=== PATIENT | female | born 1950 ===

== ENCOUNTER 2016-10-16 01:54 | Inpatient (IN) ==
--- NOTE | 2016-10-16 02:03 | Emergency Department Note ---
Arrival - Arrival Mode of Arrival: Ambulatory Limitations: Altered Mental Status Source: Old Records Reviewed Time Seen by Provider: 10/16/16 02:00 - History of Present Illness HPI Narrative: This 66-year-old female presents on transfer from [facility] for hypothermia. The patient originally presented to [place] because of increasing dyspnea at rest and urinary tract infection. She subsequently was found to have a temperature of 90.8 with a white blood count of 15,000 and urine on visual resembling a greenish yellow discharge. Patient was given 2 g of Rocephin IV and 500 cc of warm normal saline and referred to our institution for further evaluation and treatment. The patient is in hospice and is a DNR not wishing anything extraordinary to be undertaken. She is status post failed renal transplant and chose not to proceed with dialysis. Currently she is alert and responsive with a temperature of 91 and a blood pressure systolic of 100 on arrival to our unit Onset (ago): unknown Allergies/Adverse Reactions: Allergies Allergy/AdvReac Type Severity Reaction Status Date / Time ciprofloxacin [From Cipro] AdvReac Swelling Verified 06/15/15 15:44 of Lip/Tongue/Throat Home Medications: Home Medications Medication Instructions Recorded Confirmed Type Calcitriol [Rocaltrol] 0.25 mcg PO DAILY capsule 09/13/15 04/01/16 Rx Cyanocobalamin Tab [Vitamin B12 1,000 mcg PO DAILY tablet 09/13/15 04/01/16 Rx Tab] Folic Acid Tab 1 mg PO DAILY tablet 09/13/15 04/01/16 Rx predniSONE TAB [PredniSONE] 10 mg PO DAILY tablet 09/13/15 04/01/16 Rx Acetamin/Codeine 300-30 Tab 1 tablet PO Q6H PRN 04/01/16 04/01/16 History [Tylenol/Codeine #3] Carvedilol [Coreg] 25 mg PO BID 04/01/16 04/01/16 History Ferrous Sulfate 648 mg PO BEDTIME 04/01/16 04/01/16 History Fluconazole Tab [Diflucan Tab] 400 mg PO DAILY 04/01/16 04/01/16 History Furosemide Tab [Lasix Tab] 40 mg PO DAILY 04/01/16 04/01/16 History Multivitamin [Multivitamins] 1 each PO DAILY 04/01/16 04/01/16 History Tacrolimus Cap [Prograf Cap] 0.5 mg PO Q12HR 04/01/16 04/01/16 History Tamsulosin [Flomax] 0.4 mg PO BEDTIME 04/01/16 04/01/16 History Thiamine Tab [Vitamin B1 Tab] 100 mg PO DAILY 04/01/16 04/01/16 History Aspirin EC Tab 81 mg PO DAILY tablet 04/05/16 Rx Imipenem/Cilastatin Sodium 500 mg IV DAILY 5 Days 04/05/16 Rx [Imipenem-Cilastatin 500 mg Vl] Insulin Aspart Prot/Asp 70/30 12 unit SUBCUT BIDAC #1 injection 04/05/16 Rx [NovoLOG Mix 70/30] Levofloxacin Tab [Levaquin Tab] 250 mg PO DAILY #6 tablet 04/05/16 Rx Skin Healing Oint (Aquaphor) 1 applic TOP PRN PRN #0 ointment 04/05/16 Rx [Aquaphor] Sodium Bicarb Tab 1,300 mg PO BID tablet 04/05/16 Rx Vancomycin Liquid 125 mg PO BID #20 bottle 04/05/16 Rx Review of System - Review of System ROS unobtainable: due to mental status Medical,Surgical,& Family Hx - Medical History Cardio: History of: Hypertension HEENT: History of: Ear Problem (SUPPOSE TO HAVE Hearing aides BUT NOT AT THIS TIME), Eye Problem (cataract), Glaucoma, HEENT Problems (CATARACTS, WEARS GLASSES) Endocrine: History of: Diabetes Mellitus (IDDM), Diabetes Mellitus (NIDDM), Dyslipidemia Rheumatology: History of;: Rheumatoid Arthritis Respiratory: History of: Pneumonia Renal: History of: Renal Failure, Renal Problems (kidney transplant) Genitourinary: History of: Recurring Urinary Tract Infections Gastrointestinal: History of: Clostridium Difficile, GERD Musculoskeletal: History of: Back/Neck Problems (herniated disk), Musculoskeletal Problems (Hardware insertion BLE (ankle)) Hematology: History of: Anemia, Blood Transfusion Reaction Other: History of: Miscellaneous Medical Problems (C Diff) - Surgical History Thoracic Surgeries: Surgical HX of;: Kidney (Renal Surgery) (Right transplant [facility] 6 years ago), Organ Transplant (Kidney 2009) Neurologic Surgeries: Patient denies: Neurologic Surgery Abdominal Surgeries: Surgical HX of: Appendectomy, Cholecystectomy, Colonoscopy (Dr. Fish Sr.), EGD (Dr. Abe Cheatham.) Reproductive Surgeries: Surgical HX of;: Genitourinary Surgery, Gynecologic Surgery, Hysterectomy Orthopedic Surgeries: Surgical HX of;: Total Hip Replacement (right hip September) - Family History Family History: Reports;: Family Diabetes, Family Heart Disease (mom and dad), Family Hypertension, Family Stroke (dad) - Social History Smoking Status: Never smoker Exam Physical Examination: GENERAL: Chronically ill-appearing elderly female in no acute distress. HEENT: Normocephalic. No trauma. Dry mucous membranes. EOMI. PERRLA. ENT NML NECK: Supple. No adenopathy. CARDIAC: Regular. No murmurs. Heart rate 70 CHEST: Scattered expiratory rhonchi. No respiratory distress. O2 sat 100% ABDOMEN: Soft. Nontender. Active bowel sounds. EXTREMITIES: No trauma. Normal ROM. No pedal edema. Left femoral central line noted SKIN: No diaphoresis. Cool and clammy skin. 3 x 3 cm left heel ulcer without purulent drainage or erythema NEURO: Alert. Oriented to person place, less so time. Motor, sensory, vibratory intact. No focal deficits. Course - Reevaluation(s) Reevaluation #1: Patient expectant of admission for terminal care - Consultations Consultation #1: Discussed with hospitalist service who will admit for further evaluation treatment. Results - Labs Labs: Lab per Bruno: White blood cell count 15,000, hematocrit 27, lactic acid 1.8, creatinine 10.5, BUN 156, sodium 126, potassium 7.3, glucose 339 - Impressions EKG: Sinus rhythm at 68 with normal FL interval and QRS duration. Poor R-wave progression anteriorly with evidence of old inferior [place]. Diffuse ST changes without significant peak T's. Disposition Clinical Impression: Hypothermia, Urosepsis, Chronic renal failure Case discussed with: patient Disposition: Still a Patient Condition: Critical Time of Disposition: 02:11
[2016-10-16] MEDS ORDERED: CALCIUM CHLORIDE 1,000 MG/10 ML SYRINGE IV STA (02:12)
[2016-10-16] MEDS ORDERED: ALBUTEROL NEB SOLN 5 MG/ML 20 ML/BOTTLE CONT NEB STA (02:12)
[2016-10-16] MEDS ORDERED: CALCIUM CHLORIDE 1,000 MG/10 ML SYRINGE IV ONE (02:24)
[2016-10-16 03:19] LABS: Calcium 6.9 MG/DL (8.5-10.1); Osmolality,Calculated 319.8 MOS/KG (273-304)
[2016-10-16 03:21] LABS: Potassium 6.3 MMOL/L (3.5-5.1)
[2016-10-16] MEDS ORDERED: ONDANSETRON 4 MG/2 ML VIAL IV PRN (03:29)
[2016-10-16] MEDS ORDERED: GLUCAGON 1 MG VIAL IM PRN ×2 (03:29→09:19)
[2016-10-16] MEDS ORDERED: ALBUTEROL 2.5 MG/3 ML NEB RESP TX PRN (03:29)
[2016-10-16] MEDS ORDERED: ALBUTEROL/IPRATROPIUM 3 ML NEB RESP TX PRN (03:29)
[2016-10-16] MEDS ORDERED: SODIUM BICARBONATE 50 MEQ/50 ML VIAL IV ONE (03:40)
--- NOTE | 2016-10-16 03:49 | Hospitalist History & Physical ---
Assessment and Plan (1) Failed kidney transplant Status: Acute Current Visit: Yes (2) Metabolic acidosis Status: Acute Current Visit: Yes (3) Sepsis Status: Acute Current Visit: Yes (4) Hypothermia Status: Acute Current Visit: No (5) ESRD (end stage renal disease) Status: Acute Current Visit: No (6) Hyperkalemia Status: Resolved Assessment and plan: Our plan for this patient will be admission to the ICU. We will give her 2 A of sodium bicarb and put her on sodium bicarb drip. Patient did have elevated BNP at the other facility. We will give her Lasix in addition to the sodium bicarb drip. This action should help reduce her potassium. I am going to repeat her labs at 7 AM to see the effects of these medications. Most likely patient will not survive this hospitalization. She is a DNR and. I am going to expand her antibiotic coverage to Zosyn. Family should be bringing her home meds which are only 3 medications. Family is unsure if she still takes her antirejection drugs. Will not consult renal at this time yet. Patient has declined dialysis. Repeat chest x-ray. Current Visit: No History of Present Illness Chief complaint: Shortness of breath History of present illness: Ms. Chavez is a 66 year old female with past medical history of a failed kidney transplant and on hospice who is not a dialysis candidate by her own choice in a DNR presents as a transfer to our hospital from [facility]. The family reports that the patient's breathing is steadily become more uncomfortable. Patient seems to be weaker day by day. She has been able to transfer herself from the wheelchair to the bed but could not. Hospice checked on her in the cap inspector. They put her on 4 L of O2. Urine was a green color. Yesterday her temperature was 99. Patient's family took her to see her's grandsons graduation and from that graduation service they went to the [facility]. Patient's temperature at the [facility] was 93. Was felt that patient was septic from a urinary source. Patient is a hospice patient but family insisted on admission. She was transferred to our hospital for further evaluation. Patient has multiple electrolyte abnormalities. I was consulted to admit the patient Home Medications Medication Instructions Recorded Confirmed Type Calcitriol [Rocaltrol] 0.25 mcg PO DAILY capsule 09/13/15 04/01/16 Rx Cyanocobalamin Tab [Vitamin B12 1,000 mcg PO DAILY tablet 09/13/15 04/01/16 Rx Tab] Folic Acid Tab 1 mg PO DAILY tablet 09/13/15 04/01/16 Rx predniSONE TAB [PredniSONE] 10 mg PO DAILY tablet 09/13/15 04/01/16 Rx Acetamin/Codeine 300-30 Tab 1 tablet PO Q6H PRN 04/01/16 04/01/16 History [Tylenol/Codeine #3] Carvedilol [Coreg] 25 mg PO BID 04/01/16 04/01/16 History Ferrous Sulfate 648 mg PO BEDTIME 04/01/16 04/01/16 History Fluconazole Tab [Diflucan Tab] 400 mg PO DAILY 04/01/16 04/01/16 History Furosemide Tab [Lasix Tab] 40 mg PO DAILY 04/01/16 04/01/16 History Multivitamin [Multivitamins] 1 each PO DAILY 04/01/16 04/01/16 History Tacrolimus Cap [Prograf Cap] 0.5 mg PO Q12HR 04/01/16 04/01/16 History Tamsulosin [Flomax] 0.4 mg PO BEDTIME 04/01/16 04/01/16 History Thiamine Tab [Vitamin B1 Tab] 100 mg PO DAILY 04/01/16 04/01/16 History Aspirin EC Tab 81 mg PO DAILY tablet 04/05/16 Rx Imipenem/Cilastatin Sodium 500 mg IV DAILY 5 Days 04/05/16 Rx [Imipenem-Cilastatin 500 mg Vl] Insulin Aspart Prot/Asp 70/30 12 unit SUBCUT BIDAC #1 injection 04/05/16 Rx [NovoLOG Mix 70/30] Levofloxacin Tab [Levaquin Tab] 250 mg PO DAILY #6 tablet 04/05/16 Rx Skin Healing Oint (Aquaphor) 1 applic TOP PRN PRN #0 ointment 04/05/16 Rx [Aquaphor] Sodium Bicarb Tab 1,300 mg PO BID tablet 04/05/16 Rx Vancomycin Liquid 125 mg PO BID #20 bottle 04/05/16 Rx Allergies Allergy/AdvReac Type Severity Reaction Status Date / Time ciprofloxacin [From Cipro] AdvReac Swelling Verified 06/15/15 15:44 of Lip/Tongue/Throat Medical,Surgical,& Family Hx - Medical History Cardio: History of: Hypertension HEENT: History of: Ear Problem (SUPPOSE TO HAVE Hearing aides BUT NOT AT THIS TIME), Eye Problem (cataract), Glaucoma, HEENT Problems (CATARACTS, WEARS GLASSES) Endocrine: History of: Diabetes Mellitus (IDDM), Diabetes Mellitus (NIDDM), Dyslipidemia Rheumatology: History of;: Rheumatoid Arthritis Respiratory: History of: Pneumonia Renal: History of: Renal Failure, Renal Problems (kidney transplant) Genitourinary: History of: Recurring Urinary Tract Infections Gastrointestinal: History of: Clostridium Difficile, GERD Musculoskeletal: History of: Back/Neck Problems (herniated disk), Musculoskeletal Problems (Hardware insertion BLE (ankle)) Hematology: History of: Anemia, Blood Transfusion Reaction Other: History of: Miscellaneous Medical Problems (C Diff) - Surgical History Thoracic Surgeries: Surgical HX of;: Kidney (Renal Surgery) (Right transplant [facility] 6 years ago), Organ Transplant (Kidney 2009) Neurologic Surgeries: Patient denies: Neurologic Surgery Abdominal Surgeries: Surgical HX of: Appendectomy, Cholecystectomy, Colonoscopy (Dr. Fish SrJesusita), EGD (Dr. Fish SrJesusita) Reproductive Surgeries: Surgical HX of;: Genitourinary Surgery, Gynecologic Surgery, Hysterectomy Orthopedic Surgeries: Surgical HX of;: Total Hip Replacement (right hip September) - Family History Family History: Reports;: Family Diabetes, Family Heart Disease (mom and dad), Family Hypertension, Family Stroke (dad) - Social History Smoking Status: Never smoker Frequency of Alcohol Use: None Type of Drug Use: None 12 point system: reviewed and no additional remarkable complaints except as stated Exam - Constitutional Vitals: Period Temp Pulse Resp BP Sys/Rios Pulse Ox Last 24 Hr 91.1 F-91.1 F 66-71 24-26 100-100/49-49 99-100 General appearance: under weight - Head Head exam: Present: normal inspection - Eye Eye exam: Present: EOMI Pupils: Present: DARREL - ENT ENT exam: Present: normal exam - Respiratory Respiratory exam: Present: rhonchi - Cardiovascular Cardiovascular exam: Present: regular rate and rhythm - GI/Abdominal GI/Abdominal exam: Present: normal bowel sounds - Extremities Exam Extremities exam: Present: normal inspection - Neurological Exam Neurological exam: Present: alert - Psychiatric Psychiatric exam: Present: flat affect - Skin Skin exam: Present: other (Skin is cool) Results - Labs CBC & BMP: 10/16/16 02:38
[2016-10-16] MEDS ORDERED: FAMOTIDINE 20 MG/2 ML VIAL IV SCH (05:00)
[2016-10-16] MEDS: SODIUM ACETATE 150 MEQ in STERILE WATER INJ 1,000 ML IV SCH ×2 (05:15→19:36)
[2016-10-16 05:59] LABS: Calcium 7.6 MG/DL (8.5-10.1); Osmolality,Calculated 320.7 MOS/KG (273-304); Potassium 5.9 MMOL/L (3.5-5.1)
[2016-10-16 06:30] LABS: Basophils % 0.1 % (0.0-0.8); Hematocrit 24.9 VOL% (35.7-47.0); Hemoglobin 7.9 GM/DL (12.0-16.0); Immature Granulocytes Absolute 0.15 #; Lymphocytes # 0.7 10*3/uL (1.4-4.0); Lymphocytes % 4.7 % (21.3-54.2); Mean Corpuscular HGB Conc 31.7 GM/DL (32-36); Mean Corpuscular Hemoglobin 33 PG (27-34); Mean Corpuscular Volume 104.2 FL (87-102); Mean Platelet Volume 9.5 FL (9.6-12.0); Monocytes # 0.9 10*3/uL (0.11-0.8); Monocytes % 5.9 % (1.7-12.7); NRBC # 0.03 10*3/uL; Neutrophils # 13.3 10*3/uL (1.4-7.4); Neutrophils % 88.3 % (38.7-73.9); Platelet Count 164 T/CUMM (130-400); Red Blood Count 2.39 MC/CUMM (3.8-5.5); Red Cell Distribution Width 14.5 % (9.3-17.3); White Blood Count 15.1 T/CUMM (4-12)
[2016-10-16] MEDS: PIPERACILLIN/TAZOBACTAM 3,375 MG in SODIUM CHLORIDE 0.9% 100 ML IV SCH ×2 (06:46→16:55)
[2016-10-16 07:08] LABS: Hypochromasia Slight; Platelet Estimate Normal
[2016-10-16 07:09] LABS: Burr Cells Slight
--- NOTE | 2016-10-16 07:15 | XRay Report ---
Referring Physician: You Aragon Exam: XR chest 1V Date: October 16, 2016 at 3:46 AM Reason: Shortness of breath Comparison: Chest one view portable September 09, 2015 Findings: The cardiac silhouette is upper normal in size, and there is prominent calcified plaque at the thoracic aorta. Calcified mediastinal and hilar lymph nodes are also present, and a nonspecific catheter projects at the mid chest. The interstitial markings are diffusely prominent bilaterally. This likely represents mild pulmonary edema, but other considerations include scarring or an infectious process. No pneumothorax or pleural fluid is identified. A few remote rib fractures are present bilaterally, and there is likely a subacute fracture of the left lateral fourth rib. Surgical clips are noted within the right upper abdomen. Impression: 1. The interstitial markings are prominent bilaterally. This likely represents mild pulmonary edema, but other considerations include scarring or an infectious process. 2. Probable subacute fracture of the left lateral fourth rib. PROCEDURE INTERPRETED AT [facility] DEPARTMENT OF RADIOLOGY Final Report Signed by: Dr. Dale Yates
[2016-10-16] MEDS: FUROSEMIDE 40 MG/4 ML VIAL IV SCH ×2 (08:04→16:21)
--- NOTE | 2016-10-16 08:04 | Hospitalist Progress Note ---
Hospitalist: Subjective Interval history: Pt c/o pain in left heel. Reports SOB with cough ? productive. No chest pain. No fever. No nausea or vomiting. No abd pain. Exam - Constitutional Vitals: Period Temp Pulse Resp BP Sys/Rios Pulse Ox Last 24 Hr 95.5 F 66-94 17-26 79-106/41-72 94-100 Exam: A and O x 2, RRR no M CTAB nonlabored, diminished at the bases Soft, NT, ND, +BS Warm right 2nd necrotic toe. left heel stage 3 without active drainage noted. Results - Labs CBC & BMP: 10/16/16 06:22 10/16/16 05:20 - Impressions (1) Failed kidney transplant in a patient with ESRD (end stage renal disease) Status: Acute Current Visit: Yes - pt is DNR. She does not want HD. (2) Hyponatremia with Metabolic acidosis and hyperkalemia likely due to ESRD Status: Acute Current Visit: Yes - on sodium acetate. Add oral sodium bicarbonate. S/p Richie's cocktail. Give kayexalate. Recheck BMP in 4-6 hours. If still elevated, repeat Jalil's cocktail. (3) Sepsis possibly due to acute cystitis (POA) +/- OM of right 2nd toe Status: Acute Current Visit: Yes - Change Cont Zosyn and add Daptomycin 6mg IV q24h or Zyvox and F/U Ucx and blood cultures. (4) Hypothermia Status: Acute Current Visit: No (5) Suspected dry gangrene/ OM of right 2nd toe (POA) in a patient with DM2 - check bone scan. IV antibiotics and F/U blood culture. (6) Stage 3 heel ulcer (POA) in a patient with DM2 - local wound care. (7) DM2 control unknown - check HgbA1c, start diabetic diet and I.S.S. and accuchecks ac,hs Status: Assessment and plan: Cont treatment in ICU until K around 5 then can transfer to telemetry. Overall poor prognosis She is DNR Consulted pharmacy to address home meds. F/U Repeat chest x-ray. 44 minutes spent with this patient. D/W nurse, pharmacy, pt and wound care. All questions answered.
[2016-10-16] MEDS: PANTOPRAZOLE 40 MG TABLET PO SCH (08:07)
[2016-10-16] MEDS ORDERED: DEXTROSE 50% 25 GM/50 ML VIAL IV PRN (09:19)
[2016-10-16] MEDS ORDERED: SODIUM POLYSTYRENE SULFATE 15 GM/60 ML BOTTLE PO ONE (09:28)
[2016-10-16] MEDS ORDERED: INSULIN LISPRO 100 UNIT/ML SUBCUT SCH ×2 (09:33→11:30)
[2016-10-16] MEDS: INSULIN LISPRO 100 UNIT/ML SUBCUT SCH ×4 (09:49→21:15)
[2016-10-16] MEDS: SODIUM BICARBONATE 650 MG TABLET PO SCH ×3 (09:50→21:27)
[2016-10-16] MEDS: BACITRACIN OINT 0.9 GM PACK TOP SCH (09:50)
[2016-10-16 10:26] LABS: Apearance,Urine CLOUDY (Clear); Bilirubin,Urine Negative (Negative); Blood, Urine Small mg/dL (Negative); Glucose,Urine (UA) 150 mg/dL (Negative); Ketones,Urine 5 mg/dL (Negative); Nitrite,Urine Negative (Negative); Protein,Urine >=500 MG/DL; RBC,Urine 44 /HPF (0-4); Urine Color Yellow (Yellow); Urine Specific Gravity 1.014 (1.001-1.035); Urine Urobilinogen < 2.0 EU/DL (0.2-1.0); WBC,Urine 247 /HPF (0-6)
[2016-10-16 13:46] LABS: Calcium 7.2 MG/DL (8.5-10.1)
[2016-10-16 13:47] LABS: Osmolality,Calculated 332.4 MOS/KG (273-304); Potassium 4.1 MMOL/L (3.5-5.1)
--- NOTE | 2016-10-16 14:16 | Nuclear Medicine Report ---
NM bone 3 phase Indication: Infected right second toe. Comparison: Chest x-ray 10/16/2016. Right femur x-ray 09/28/2015 Technique: Following intravenous administration of 30 mCi of technetium 99m labeled MDP, planar imaging of the entire body in the anterior and posterior projection was performed and additionally, flow imaging of the feet in the plantar projection was performed at 4 second intervals through 60 seconds with additional blood pool and delayed images obtained in the anterior plantar and right lateral projections. Findings: Normal biodistribution MDP is demonstrated. Focal areas of increased scintigraphic activity are noted along the lateral right rib cage involving the right third, fifth, sixth, and possibly seventh rib with additional focal areas of increased activity noted on the left involving anterior second, third, lateral fifth rib. Additional asymmetric increased activity within the right intratrochanteric hip is demonstrated. This correlates with intertrochanteric hip fracture demonstrated on September 2015 study. Central lucency within the femurs compatible with intramedullary kiersten. Flow images demonstrate no distinct hyperemic flow. Blood pool images demonstrate no bony activity within either foot. In the delayed phase, there is minimal activity in the region of the right second toe. Additional activity is present bilaterally within the posterior feet suggested in the region of the mid foot on the right. Impression: 1. Area of activity in the right intertrochanteric hip is compatible with healing fracture. 2. No specific evidence of acute osteomyelitis is demonstrated. There may be some activity in the region of the right second toe only in the delayed phase which is a nonspecific finding. 3. Activity bilaterally present within the feet and the delayed phase are in locations typical of osteoarthritis and degenerative change. No conventional radiographs are available for correlation. 4. Multiple punctate foci of increased activity present within the rib cage on the anterior projection. This favored to represent rib fractures as healing rib fractures are demonstrated on conventional chest radiograph used for comparison. 10/16/2016 2:07 PM PROCEDURE INTERPRETED AT [facility] DEPARTMENT OF RADIOLOGY Final Report Signed by: Dr. Lew Powell
--- NOTE | 2016-10-16 14:32 | EKG Report ---
Stationary ECG Study [facility] ER Test Date: 10/16/2016 1:59:49 AM Pat Name: MIN STEWART Department: Room: 109 Gender: F Research [employer] Evaluation Analyst: : 1950 Requested by: Lam Jara Order Number: [id number] Reading MD: CAESAR JOHNSON Intervals [place] Rate: 68 P: 21 [place]: 183 QRS: -17 QRSD: 128 T: 99 QT: 487 QTc: 504 Interpretive Statements SINUS RHYTHM POSSIBLE ANTERIOR MYOCARDIAL INFARCTION, OF INDETERMINATE AGE INFERIOR MYOCARDIAL INFARCTION, OF INDETERMINATE AGE IVCD MODERATE T-WAVE ABNORMALITY, CONSIDER LATERAL ISCHEMIA Electronically Signed On 10-16-16 21:20:57 CDT by CAESAR JOHNSON [email or web address]
[2016-10-16] MEDS: DEXTROSE 50% 25 GM/50 ML VIAL IV PRN (20:14)
[2016-10-17] MEDS: PIPERACILLIN/TAZOBACTAM 3,375 MG in SODIUM CHLORIDE 0.9% 100 ML IV SCH ×2 (05:15→16:38)
[2016-10-17] MEDS: SODIUM ACETATE 150 MEQ in STERILE WATER INJ 1,000 ML IV SCH ×2 (06:25→16:29)
[2016-10-17 06:46] LABS: Basophils % 0.3 % (0.0-0.8); Eosinophils # 0.1 10*3/uL (0.0-0.87); Eosinophils % 1.5 % (0.00-10.9); Hematocrit 19.1 VOL% (35.7-47.0); Hemoglobin 6.8 GM/DL (12.0-16.0); Immature Granulocytes % 0.6 %; Immature Granulocytes Absolute 0.04 #; Lymphocytes # 0.9 10*3/uL (1.4-4.0); Lymphocytes % 12.5 % (21.3-54.2); Mean Corpuscular HGB Conc 35.6 GM/DL (32-36); Mean Corpuscular Hemoglobin 33 PG (27-34); Mean Corpuscular Volume 91.8 FL (87-102); Monocytes # 0.5 10*3/uL (0.11-0.8); Monocytes % 7.3 % (1.7-12.7); Neutrophils # 5.7 10*3/uL (1.4-7.4); Neutrophils % 77.8 % (38.7-73.9); Platelet Count 179 T/CUMM (130-400); Red Blood Count 2.08 MC/CUMM (3.8-5.5); Red Cell Distribution Width 14.1 % (9.3-17.3); White Blood Count 7.3 T/CUMM (4-12)
[2016-10-17 07:40] LABS: Hypochromasia 1+; Lymphocytes 9 % (20-55); Platelet Estimate Adequate; Segmented Neutrophils 84 % (50-85); Total Cells Counted 100
[2016-10-17 07:52] LABS: Osmolality,Calculated 322.5 MOS/KG (273-304); Potassium 3.9 MMOL/L (3.5-5.1)
[2016-10-17 08:17] LABS: Calcium 5.6 MG/DL (8.5-10.1)
[2016-10-17] MEDS: INSULIN ASPART PROTAMINE/ASPART 70/30 100 UNIT/ML SUBCUT SCH ×3 (09:19→16:30)
[2016-10-17] MEDS ORDERED: SODIUM CHLORIDE 0.9% 250 ML IV PRN (09:19)
[2016-10-17] MEDS: INSULIN LISPRO 100 UNIT/ML SUBCUT SCH ×4 (09:20→21:46)
[2016-10-17] MEDS: FUROSEMIDE 40 MG/4 ML VIAL IV SCH ×2 (09:25→16:39)
[2016-10-17] MEDS: PANTOPRAZOLE 40 MG TABLET PO SCH (09:31)
[2016-10-17] MEDS: SODIUM BICARBONATE 650 MG TABLET PO SCH ×3 (09:32→21:46)
[2016-10-17] MEDS: predniSONE 10 MG TABLET PO SCH (09:45)
[2016-10-17] MEDS: BACITRACIN OINT 0.9 GM PACK TOP SCH (09:45)
[2016-10-17] MEDS: FLUCONAZOLE 100 MG TABLET PO SCH (09:45)
[2016-10-17] MEDS: COLLAGENASE OINT 30 GM TUBE TOP SCH (11:54)
--- NOTE | 2016-10-17 12:15 | Hospitalist Progress Note ---
Hospitalist: Subjective Interval history: Patient sitting up in bed attempting oral intake. No fevers or chills. Positive bowel movement. I am unsure if patient understands what I am trying to communicate to her due to a language barrier. She seems to answer yes to all of the questions I have asked her. Exam - Constitutional Vitals: Period Temp Pulse Resp BP Sys/Rios Pulse Ox Last 24 Hr 97.1 F-97.4 F 78-102 15-25 82-127/41-67 96-100 Exam: Awake and alert, no acute distress, sitting up in bed eating breakfast RRR no M CTAB nonlabored, diminished at the bases Soft, NT, ND, +BS Warm right 2nd necrotic toe. left heel stage 3 without active drainage noted. Dressings are in place and are clean dry and intact Results - Labs CBC & BMP: 10/17/16 04:00 10/17/16 07:04 - Impressions (1) Failed kidney transplant in a patient with ESRD (end stage renal disease) Status: Acute Current Visit: Yes - pt is DNR. She does not want HD. (2) Progressive anemia of chronic disease - transfuse 2 U PRBCs. Recheck CBC. Check FOBT (3) Hyponatremia with Metabolic acidosis and hyperkalemia likely due to ESRD- improving Status: Acute Current Visit: Yes - on sodium acetate IV. Cont oral sodium bicarbonate on IV Lasix. S/p Richie's cocktail and kayexalate. K is now normal. - Serial labs (4) Hypocalcemia - check ionized calcium and replace as needed (5) Sepsis possibly due to acute cystitis (POA) +/- OM of right 2nd toe Status: Acute Current Visit: Yes - Cont Zosyn and Daptomycin 6mg IV q24h and F/U Ucx and blood cultures. (6) Hypothermia Status: resolved Current Visit: No (7) Suspected dry gangrene/ OM of right 2nd toe (POA) in a patient with DM2 - Bone scan negative for possible OM. Cont IV antibiotics and F/U blood culture. Betadine daily to right 2nd toe. (8) Stage 3 heel ulcer (POA) in a patient with DM2 - local wound care. (9) DM2 fair control with HgbA1c 7.6 - Cont diabetic diet and I.S.S. and accuchecks ac,hs Status: Assessment and plan: Overall poor prognosis She is DNR Repeat chest x-ray. RFP shows improvement D/W nurse, pt. All questions answered.
[2016-10-17] MEDS: DEXTROSE 50% 25 GM/50 ML VIAL IV PRN (16:24)
[2016-10-18] MEDS: SODIUM ACETATE 150 MEQ in STERILE WATER INJ 1,000 ML IV SCH ×4 (00:48→21:01)
[2016-10-18] MEDS: PIPERACILLIN/TAZOBACTAM 3,375 MG in SODIUM CHLORIDE 0.9% 100 ML IV SCH ×2 (04:24→16:27)
[2016-10-18 06:57] LABS: Basophils % 0.1 % (0.0-0.8); Hematocrit 30.6 VOL% (35.7-47.0); Hemoglobin 10.7 GM/DL (12.0-16.0); Immature Granulocytes % 0.5 %; Immature Granulocytes Absolute 0.04 #; Lymphocytes # 0.8 10*3/uL (1.4-4.0); Lymphocytes % 10.1 % (21.3-54.2); Mean Corpuscular Hemoglobin 31 PG (27-34); Mean Corpuscular Volume 89.5 FL (87-102); Mean Platelet Volume 9.3 FL (9.6-12.0); Monocytes # 0.5 10*3/uL (0.11-0.8); Monocytes % 7.2 % (1.7-12.7); Neutrophils # 6.1 10*3/uL (1.4-7.4); Neutrophils % 82.1 % (38.7-73.9); Platelet Count 120 T/CUMM (130-400); Red Blood Count 3.42 MC/CUMM (3.8-5.5); Red Cell Distribution Width 14.9 % (9.3-17.3); White Blood Count 7.5 T/CUMM (4-12)
[2016-10-18 07:49] LABS: Albumin 2.1 G/DL (3.4-5.0); Blood Urea Nitrogen 135 MG/DL (7-18); Glucose 79 MG/DL (74-106); Osmolality,Calculated 317.7 MOS/KG (273-304); Phosphorous 8.9 MG/DL (2.5-4.9); Potassium 3.4 MMOL/L (3.5-5.1); Sodium 138 MMOL/L (136-145)
[2016-10-18] MEDS: INSULIN LISPRO 100 UNIT/ML SUBCUT SCH ×4 (08:26→21:00)
[2016-10-18 08:32] LABS: Calcium < 5.0 MG/DL (8.5-10.1)
[2016-10-18] MEDS: INSULIN ASPART PROTAMINE/ASPART 70/30 100 UNIT/ML SUBCUT SCH ×2 (08:51→17:25)
[2016-10-18] MEDS ORDERED: TACROLIMUS 0.5 MG CAPSULE PO SCH (09:00)
[2016-10-18] MEDS: FUROSEMIDE 40 MG/4 ML VIAL IV SCH ×2 (09:20→15:19)
[2016-10-18] MEDS: BACITRACIN OINT 0.9 GM PACK TOP SCH (09:20)
[2016-10-18] MEDS: predniSONE 10 MG TABLET PO SCH (09:21)
[2016-10-18] MEDS: SODIUM BICARBONATE 650 MG TABLET PO SCH ×3 (09:21→20:27)
[2016-10-18] MEDS: TACROLIMUS 0.5 MG CAPSULE PO SCH (09:21)
[2016-10-18] MEDS: FLUCONAZOLE 100 MG TABLET PO SCH (09:21)
[2016-10-18] MEDS: PANTOPRAZOLE 40 MG TABLET PO SCH (09:21)
[2016-10-18] MEDS ORDERED: CALCIUM GLUCONATE 1,000 MG in SODIUM CHLORIDE 0.9% 100 ML IV ONE (10:00)
[2016-10-18] MEDS: COLLAGENASE OINT 30 GM TUBE TOP SCH (10:08)
--- NOTE | 2016-10-18 15:22 | Hospitalist Progress Note ---
Assessment and Plan (1) Hypokalemia Status: Acute Assessment and plan: Supplement potassium per protocol. Tentative potassium 3.5 repeat a BMP and magnesium in the morning Current Visit: Yes (2) Hypothermia Status: Acute Assessment and plan: Resolved Current Visit: No (3) CKD (chronic kidney disease) Status: Chronic Assessment and plan: Patient has been a creatinine of 8.8 BUN 135. Informed diagnosis was offered but the patient did not want to be on machine Current Visit: No Qualifiers: Chronic kidney disease stage: stage 3 (moderate) Qualified Code(s): N18.3 - Chronic kidney disease, stage 3 (moderate) (4) UTI (urinary tract infection) Status: Acute Assessment and plan: This is caused by smarcescens and is being treated. Believe and we will can be de-escalated at this point stop the daptomycin and continue Piperacillin/ tazobactam. I do not see the need to take fluconazole therefore discontinue it. Current Visit: No (5) Metabolic acidosis Status: Acute Assessment and plan: This is resolved. Current Visit: Yes (6) Sepsis Status: Acute Current Visit: Yes Hospitalist: Subjective Interval history: Patient has been seen interviewed and examined. Chart has been reviewed. She is on 5 his transfer from the intensive care unit where she was admitted with Sepsis metabolic acidosis hypokalemia and a failed kidney transplant. Patient refusing to be dialyzed. Because of her sepsis is a urinary tract infection caused by Serratia marcescens blood cultures are negative Exam - Constitutional Vitals: Period Temp Pulse Resp BP Sys/Rios Pulse Ox Last 24 Hr 97.8 F-98.7 F 85-94 16-22 147-194/72-91 97-100 General appearance: normal weight - Head Head exam: Present: normocephalic, atraumatic - Eye Eye exam: Present: EOMI Pupils: Present: DARREL - ENT ENT exam: Present: normal exam - Neck Neck exam: Present: normal inspection - Respiratory Respiratory exam: Present: clear to auscultation bilaterally - Cardiovascular Cardiovascular exam: Present: regular rate and rhythm - GI/Abdominal GI/Abdominal exam: Present: normal bowel sounds, soft - Back Exam Back exam: Present: normal inspection - Neurological Exam Neurological exam: Present: alert, oriented X3, CN II-XII intact, other (Slow in responses but appropriate follows instructions) - Psychiatric Psychiatric exam: Present: normal affect, normal mood - Skin Skin exam: Present: normal color, warm, dry Results - Labs CBC & BMP: 10/18/16 04:29 10/18/16 04:29 Lab Results: I have reviewed the past 24 hour labs (Noted hypokalemia of 3.4. Patient will be supplemented per protocol creatinine of 8.8 BUN of 135 I am informed patient refused dialysis. She is currently DNR)
[2016-10-19] MEDS: PIPERACILLIN/TAZOBACTAM 3,375 MG in SODIUM CHLORIDE 0.9% 100 ML IV SCH (04:00)
[2016-10-19 06:50] LABS: Magnesium 1.9 MG/DL (1.8-2.4); Osmolality,Calculated 322.1 MOS/KG (273-304); Potassium 3.2 MMOL/L (3.5-5.1)
[2016-10-19 06:55] LABS: Calcium 5.1 MG/DL (8.5-10.1)
[2016-10-19] MEDS: INSULIN ASPART PROTAMINE/ASPART 70/30 100 UNIT/ML SUBCUT SCH ×2 (08:08→15:48)
[2016-10-19] MEDS: INSULIN LISPRO 100 UNIT/ML SUBCUT SCH ×4 (08:08→20:52)
[2016-10-19] MEDS: PANTOPRAZOLE 40 MG TABLET PO SCH (08:37)
[2016-10-19] MEDS: predniSONE 10 MG TABLET PO SCH (08:37)
[2016-10-19] MEDS: SODIUM BICARBONATE 650 MG TABLET PO SCH ×3 (08:37→20:52)
[2016-10-19] MEDS: FUROSEMIDE 40 MG/4 ML VIAL IV SCH (08:37)
[2016-10-19] MEDS: SODIUM ACETATE 150 MEQ in STERILE WATER INJ 1,000 ML IV SCH (08:38)
[2016-10-19] MEDS: COLLAGENASE OINT 30 GM TUBE TOP SCH (08:38)
[2016-10-19] MEDS: BACITRACIN OINT 0.9 GM PACK TOP SCH (08:38)
--- NOTE | 2016-10-19 11:32 | Hospitalist Progress Note ---
Assessment and Plan - Time spent with patient Time spent with patient: Less than 30 minutes (1) Sepsis Status: Acute Assessment and plan: Patient is septic secondary to urinary tract infection and cultures revealed Serratia marcescens and Klebsiella pneumonia sensitive to Zosyn. We will continue IV antibiotics at this time. Current Visit: Yes (2) Essential (primary) hypertension Status: Chronic Assessment and plan: Blood pressure is well controlled at this time. Continue current medical regimen. Current Visit: No (3) Anemia Status: Acute Assessment and plan: She has a history of anemia of chronic disease and did receive transfusion of packed red cells early in her stay. We will continue to follow. Current Visit: No (4) ESRD (end stage renal disease) Status: Chronic Assessment and plan: Patient has end-stage renal disease and is refusing hemodialysis. Current Visit: No (5) Failed kidney transplant Status: Acute Assessment and plan: Patient has history of failed renal transplantation and has end-stage renal disease. She has refused further hemodialysis. She is a DNR. Current Visit: Yes (6) Diabetes mellitus Status: Chronic Assessment and plan: Blood sugars well controlled. Continue current medical regimen. Current Visit: Yes Qualifiers: Diabetes mellitus type: type 2 Chronic kidney disease stage: stage 5, not on chronic dialysis (7) Hypokalemia Status: Acute Assessment and plan: She has mild hypokalemia which will be replaced and follow-up laboratory studies in the a.m. Current Visit: Yes Hospitalist: Subjective Interval history: Chart reviewed and patient examined. This only is awake and alert today and she has no complaints. She was admitted with sepsis secondary to urinary tract infection. She also has had failed kidney transplant and refused to be dialyzed. She is a DNR at this time. Exam - Constitutional Vitals: Period Temp Pulse Resp BP Sys/Rios Pulse Ox Last 24 Hr 97.8 F-99.1 F 83-100 16-20 136-172/76-88 94-99 General appearance: no acute distress - Head Head exam: Present: normocephalic, atraumatic - Eye Eye exam: Present: EOMI Pupils: Present: DARREL - Neck Neck exam: Present: normal inspection - Respiratory Respiratory exam: Present: clear to auscultation bilaterally. Absent: rales, rhonchi, wheezes - Cardiovascular Cardiovascular exam: Present: regular rate and rhythm. Absent: systolic murmur - GI/Abdominal GI/Abdominal exam: Present: normal bowel sounds, soft. Absent: tenderness - Extremities Exam Extremities exam: Absent: calf tenderness, edema - Neurological Exam Neurological exam: Present: alert - Skin Skin exam: Present: warm, dry, other (Warm necrotic second left toe and ulceration of the left heel since in place) Results - Labs CBC & BMP: 10/18/16 04:29 10/19/16 05:17 Lab Results: I have reviewed the past 24 hour labs
[2016-10-19] MEDS ORDERED: POTASSIUM CHLORIDE 20 MEQ PACK PO ONE (11:39)
[2016-10-19] MEDS ORDERED: CALCIUM GLUCONATE 2,000 MG in SODIUM CHLORIDE 0.9% 100 ML IV ONE (14:00)
[2016-10-19] MEDS: cefTRIAXone 1,000 MG in SODIUM CHLORIDE 0.9% 100 ML IV SCH (17:16)
--- NOTE | 2016-10-19 17:25 | CT Report ---
History: Altered mental status. Sepsis Date: 10/19/2016 Study: CT head without contrast Comparison exam: June 15, [address] sections were obtained through the head without IV contrast. This CT exam was performed using one or more the following dose reduction techniques: Automated exposure control, adjustment of the MA and/or KV according to patient size, or use of iterative reconstruction technique. The ventricles are midline in position without evidence of hydrocephalus. There is mild diffuse cerebral atrophy. There is no mass or parenchymal hemorrhage. There is no gross CT evidence of acute cortical stroke. There is a small amount of ill-defined low density in the periventricular white matter without mass effect compatible with changes of small vessel disease as before. There is some chronic ischemic change involving the precentral gyrus on the right as before. There is no acute extra-axial hematoma. The partially visualized paranasal sinuses and mastoid air cells are clear. There is moderate distal carotid artery calcification. Impression: No acute intracranial process compared to the previous study PROCEDURE INTERPRETED AT [facility] DEPARTMENT OF RADIOLOGY Final Report Signed by: Dr. Leslie Wade
[2016-10-19] MEDS: CALCIUM GLUCONATE 2,000 MG in SODIUM CHLORIDE 0.9% 100 ML IV SCH ×2 (18:26→22:17)
[2016-10-19] MEDS: CALCIUM (CARBONATE)/VITAMIN D 250 MG-125 UNIT TABLET PO SCH (20:48)
[2016-10-19] MEDS: DESITIN 4OZ/NYSTATIN 15 GRAM MIXTURE PASTE TOP SCH (21:02)
[2016-10-20] MEDS: CALCIUM GLUCONATE 2,000 MG in SODIUM CHLORIDE 0.9% 100 ML IV SCH (02:12)
[2016-10-20] MEDS: INSULIN LISPRO 100 UNIT/ML SUBCUT SCH ×2 (07:51→11:35)
[2016-10-20] MEDS: INSULIN ASPART PROTAMINE/ASPART 70/30 100 UNIT/ML SUBCUT SCH (08:04)
[2016-10-20] MEDS: PANTOPRAZOLE 40 MG TABLET PO SCH (08:45)
[2016-10-20] MEDS: SODIUM BICARBONATE 650 MG TABLET PO SCH (08:45)
[2016-10-20] MEDS: predniSONE 10 MG TABLET PO SCH (08:45)
[2016-10-20] MEDS: BACITRACIN OINT 0.9 GM PACK TOP SCH (08:45)
[2016-10-20] MEDS: TACROLIMUS 0.5 MG CAPSULE PO SCH (08:45)
[2016-10-20] MEDS: CALCIUM (CARBONATE)/VITAMIN D 250 MG-125 UNIT TABLET PO SCH (08:45)
[2016-10-20] MEDS: DESITIN 4OZ/NYSTATIN 15 GRAM MIXTURE PASTE TOP SCH (08:54)
[2016-10-20] MEDS: COLLAGENASE OINT 30 GM TUBE TOP SCH (08:54)
[2016-10-20 09:25] LABS: Basophils % 0.1 % (0.0-0.8); Eosinophils % 0.5 % (0.00-10.9); Hematocrit 32.9 VOL% (35.7-47.0); Hemoglobin 11.2 GM/DL (12.0-16.0); Immature Granulocytes % 0.5 %; Immature Granulocytes Absolute 0.04 #; Lymphocytes # 1.6 10*3/uL (1.4-4.0); Lymphocytes % 21.8 % (21.3-54.2); Mean Corpuscular Hemoglobin 32 PG (27-34); Mean Corpuscular Volume 92.9 FL (87-102); Monocytes # 0.8 10*3/uL (0.11-0.8); Monocytes % 10.4 % (1.7-12.7); Neutrophils # 4.9 10*3/uL (1.4-7.4); Neutrophils % 66.7 % (38.7-73.9); Platelet Count 106 T/CUMM (130-400); Red Blood Count 3.54 MC/CUMM (3.8-5.5); White Blood Count 7.3 T/CUMM (4-12)
[2016-10-20 09:47] LABS: Calcium 6.2 MG/DL (8.5-10.1); Osmolality,Calculated 323.3 MOS/KG (273-304); Potassium 3.5 MMOL/L (3.5-5.1)
--- NOTE | 2016-10-20 10:08 | Discharge Summary ---
Hospital Course - Hospital Course Hospital Course: Ms. Dean is a 66-year-old female with past medical history of failed kidney transplant on hospice who is not a dialysis candidate by her own choice and a DNR. She was transferred from [facility] with increasing weakness and inability to transfer from wheelchair to bed. Patient was noted to be hypothermic with a temperature of 93F was felt to be septic from a urinary source. She was admitted to the hospitalist service at that time. She was cultured, placed on empiric IV antibiotics and IV fluids in the ICU. There was a question of osteomyelitis and a right second toe however nuclear bone scan revealed no evidence. She was noted to be in chronic renal failure with multiple electrolyte abnormalities which were addressed during her stay. Urine cultures revealed Serratia marcescens and Klebsiella pneumonia sensitive to Zosyn. She was also noted to be anemic during her stay which is likely secondary to chronic disease and she did receive transfusion of packed red blood cells. She became afebrile and was hemodynamically stable. Family was concerned about mental status changes which was likely metabolic and infectious in etiology and CT scan of the head was performed revealed no acute changes. It is now felt that she has reached maximal benefit from hospital stay and can be discharged back home on IV antibiotics, Rocephin and, for another 5 days to complete her course. This will be provided by [facility] and then she will be reevaluated for placement on hospice. Discussed with family and they are in agreement at this time. - Time spent with patient Time with patient DS: Less than 30 minutes Diagnosis - Discharge Diagnosis (1) Sepsis Status: Acute (2) Essential (primary) hypertension Status: Chronic (3) Anemia Status: Acute (4) ESRD (end stage renal disease) Status: Chronic (5) Failed kidney transplant Status: Acute (6) Diabetes mellitus Status: Chronic (7) Hypokalemia Status: Acute Discharge Plan - Discharge Data Disposition: Home Health Service Condition at Discharge: Stable Discharge Diet: advance to your usual diet Activity: resume usual activities as tolerated Contact your physician if you experience:: fever over 101, Shortness of breath - Discharge Medications New Calcium (Carb)/Vit D 250-125 [Oscal 250 + D] 1 tablet PO TID #90 tablet Collagenase Oint [Santyl Oint] 1 applic TOP DAILY #30 applic Sodium Bicarb Tab 1,300 mg PO TID #90 tablet cefTRIAXone [Rocephin] 1,000 mg IV Q24H vial Continue predniSONE TAB [PredniSONE] 10 mg PO DAILY tablet Tacrolimus Cap [Prograf Cap] 0.5 mg PO QOTHER DAY Tacrolimus [Tacrolimus Cap] 0.5 mg PO QOTHER DAY Insulin Aspart [NovoLOG] 10 unit SUBCUT QAM HYDROmorphone TAB [Dilaudid Tab] 2 mg PO Q4HR Insulin Aspart [NovoLOG] 5 unit SUBCUT QPM Discontinued Nitrofurantoin Macro/[place] [Macrobid] 100 mg PO BID Fluconazole [Fluconazole] 100 mg PO DAILY Lisinopril/Hctz 20-12.5 [Prinzide 20-12.5] 1 tablet PO DAILY - Follow Up or Referral Follow Up: [facility] [Other] - 5 Days - Forms/Instructions Additional Discharge Instructions: She is to receive Rocephin 1 g IV daily 5 per her [facility] Home health Exam - Constitutional Vitals: Period Temp Pulse Resp BP Sys/Rios Pulse Ox Last 24 Hr 97.3 F-98 F 84-106 18-20 120-175/83-99 92-97 General appearance: no acute distress - Head Head exam: Present: normocephalic, atraumatic - Eye Eye exam: Present: EOMI Pupils: Present: DARREL - ENT ENT exam: Present: normal exam - Neck Neck exam: Present: normal inspection - Respiratory Respiratory exam: Present: clear to auscultation bilaterally - Cardiovascular Cardiovascular exam: Present: regular rate and rhythm - GI/Abdominal GI/Abdominal exam: Present: normal bowel sounds, soft. Absent: tenderness - Extremities Exam Extremities exam: Absent: calf tenderness, edema - Back Exam Back exam: Present: normal inspection - Neurological Exam Neurological exam: Present: alert, normal gait, CN II-XII intact. Absent: motor sensory deficit - Skin Skin exam: Present: warm, dry. Absent: rash Discharge Results Procedures and tests throughout hospitalization: Pending Orders 10/16/16 06:14 Blood Culture Stat 10/18/16 19:04 Occult Blood, Stool Stat Labs on day of discharge: Labs from last 24 hours 10/20/16 10/20/16 10/20/16 08:50 08:50 07:43 WBC 7.3 RBC 3.54 L Hgb 11.2 L Hct 32.9 L MCV 92.9 MCH 32 MCHC 34.0 RDW 15.0 Plt Count 106 L MPV 9.0 L Neut % (Auto) 66.7 Lymph % (Auto) 21.8 [place] % (Auto) 10.4 Eos % (Auto) 0.5 Baso % (Auto) 0.1 Neut # (Auto) 4.9 Lymph # (Auto) 1.6 [place] # (Auto) 0.8 Eos # (Auto) 0.0 Baso # (Auto) 0.0 Immature Gran % 0.5 Nucleated RBC % 0.0 Immature Gran # 0.04 Nucleated RBCs # 0.00 Sodium 141 Potassium 3.5 Chloride 85 L Carbon Dioxide 33 H Anion Gap 26.5 H BUN 123 H Creatinine 8.80 H GFR Calculation 4 BUN/Creatinine Ratio 13.00 Glucose 165 H POC Glucose 169 H Calculated Osmolality 323.3 H Calcium 6.2 L Ionized Calcium 10/19/16 10/19/16 10/19/16 23:55 19:56 15:28 WBC RBC Hgb Hct MCV MCH MCHC RDW Plt Count MPV Neut % (Auto) Lymph % (Auto) [place] % (Auto) Eos % (Auto) Baso % (Auto) Neut # (Auto) Lymph # (Auto) [place] # (Auto) Eos # (Auto) Baso # (Auto) Immature Gran % Nucleated RBC % Immature Gran # Nucleated RBCs # Sodium Potassium Chloride Carbon Dioxide Anion Gap BUN Creatinine GFR Calculation BUN/Creatinine Ratio Glucose POC Glucose 228 H 230 H 162 H Calculated Osmolality Calcium Ionized Calcium 10/19/16 10/17/16 11:07 09:32 WBC RBC Hgb Hct MCV MCH MCHC RDW Plt Count MPV Neut % (Auto) Lymph % (Auto) [place] % (Auto) Eos % (Auto) Baso % (Auto) Neut # (Auto) Lymph # (Auto) [place] # (Auto) Eos # (Auto) Baso # (Auto) Immature Gran % Nucleated RBC % Immature Gran # Nucleated RBCs # Sodium Potassium Chloride Carbon Dioxide Anion Gap BUN Creatinine GFR Calculation BUN/Creatinine Ratio Glucose POC Glucose 107 H Calculated Osmolality Calcium Ionized Calcium 2.83 L* Preliminary micro results at discharge 10/16/16 06:14 Blood Culture - Preliminary Blood No growth at 3 days 10/16/16 05:20 Blood Culture - Preliminary Blood No growth at 3 days DS: Provider Date of admission: 10/16/16 03:29 Primary care physician: Bruno Brand MD Attending physician on admission: You Aragon MD Consults: 10/16/16 05:36 Consult to Dietitian [CONS] Routine Reason for Dietitian: Other 10/16/16 09:19 Consult to Pharmacy [CONS] Routine Reason for Pharmacy Consult: Home Medication Review 10/19/16 11:43 Consult to Case Mgmt/Social Srvs [CONS] Routine Reason for Case Mgmt/Social Srvs: Discharge Planning Consult Comment: Plan possible dc next 24 - 48 hours Discharging clinician: Alessandra Santos Expected date of discharge: 10/20/16
[2016-10-20] MEDS: cefTRIAXone 1,000 MG in SODIUM CHLORIDE 0.9% 100 ML IV SCH (10:37)
[2016-10-20 11:45] VITALS: BP 165/78
--- NOTE | 2016-10-28 08:41 | Physician Query Form ---
CLICK EDIT DOCUMENT TO SELECT QUERY ANSWER --> OK --> SIGN Lori Bird RN [employer] Medical Technician W) [phone] (f) [phone] [email or web address] PROVIDERS: Make your selection(s) from the choices in EACH section by typing an "x" and enter comments in the comment section. Please use your independent medical judgment in providing your response. This request does not imply that any particular answer is desired or expected. CLINICAL INDICATORS: (Providers should not edit this section) Based on documentation from wound care initial assessment. "Pressure ulcer stage 3 to left heel" Based on the above, could you clarify the appropriate diagnosis, if significant , that supports the above abnormalities and additional evaluation, monitoring, and/or treatment rendered: (x ) Agree with wound care assessment ( ) Do NOT agree with wound care assessment ( ) Other, please specify: ( ) Clinically unable to determine COMMENTS: PLEASE ALSO DOCUMENT RESPONSE IN PROGRESS NOTES AND/OR DISCHARGE SUMMARY Use of terms such as suspected, likely, or probable (associated with a specific diagnosis that is being evaluated, monitored, or treated as if it exists) are acceptable and can be restated in the discharge summary if not ruled out. [facility]
== END 2016-10-20 15:09 | disposition home health service (06) | DRG 871 ==
LOC: N.ED 01:54 → SUATTDRO 03:29 → N.EDINP 03:29 → N.ICU 04:03 → N.5E 10-17 21:37
PROVIDERS: ADMIT Internal Medicine; ATTEND Hospitalist